=== PATIENT | female | born 1995 | race Caucasian/White ===

== ENCOUNTER 2016-12-05 12:18 | Emergency (ER) | payer OTHER ==
[~2016-12-05] VITALS: Ht 165.1 cm; Wt 52.7 kg
[2016-12-05] MEDS ORDERED: IUD CERV (12:32)
[2016-12-05 12:53] VITALS: BP 118/63
== END 2016-12-05 14:08 | disposition left against medical advice (07) ==
LOC: EMS 12:20
DX: F11.20 Opioid dependence, uncomplicated (principal); F12.10 Cannabis abuse, uncomplicated; F15.10 Other stimulant abuse, uncomplicated
CPT/HCPCS: 99283